=== PATIENT | male | born 1980 | race African-American/Black ===

== ENCOUNTER 2021-09-28 02:55 | Emergency (ER) | payer SELFPAY ==
[~2021-09-28] VITALS: Ht 193 cm; Wt 127.3 kg
[2021-09-28] MEDS ORDERED: HYDROmorphone 2 MG/ML VIAL IVP ONE (03:15)
[2021-09-28 03:21] VITALS: BP 140/101
== END 2021-09-28 04:24 | disposition short-term general hospital (02) ==
LOC: EMS 02:57
DX: S39.92XA Unspecified injury of lower back, initial encounter (principal); V49.49XA Driver injured in collision with other motor vehicles in traffic accident, initial encounter; Y93.89 Activity, other specified; Y92.89 Other specified places as the place of occurrence of the external cause; Y99.8 Other external cause status
CPT/HCPCS: 99283; 96374; J1170